=== PATIENT | male | born 1990 | race Caucasian/White ===

== ENCOUNTER 2018-08-25 11:16 | Emergency (ER) | payer OTHER ==
[2018-08-25 12:45] LABS: ADD UMIC YES; UR ASCORBIC ACID NEGATIVE (NEGATIVE); UR BACTERIA FEW /HPF (NONE SEEN); UR BILIRUBIN (Dip) NEGATIVE (NEGATIVE); UR BLOOD (Dip) 1+ mg/dL (NEGATIVE); UR CLARITY SLIGHTLY CLOUDY (CLEAR); UR COLOR STRAW (YELLOW); UR GLUCOSE (Dip) NEGATIVE (NEGATIVE); UR KETONES (Dip) NEGATIVE (NEGATIVE); UR LEUKOCYTE ESTERASE (Dip) 3+ Leu/ul (NEGATIVE); UR NITRITE (Dip) NEGATIVE (NEGATIVE); UR RBC 4 /HPF (0-5); UR SPECIFIC GRAVITY (Dip) 1.003 (1.003-1.030); UR TOTAL PROTEIN (Dip) NEGATIVE (NEGATIVE); UR UROBILINOGEN (Dip) NEGATIVE (NEGATIVE); UR WBC > 182 /HPF (0-5)
[2018-08-25 12:57] LABS: ADD MAN DIFF? NO
[2018-08-25 12:58] LABS: WHITE BLOOD COUNT 8.2 10^3/ul (4.8-10.8)
[2018-08-25 12:58] LABS: BASOPHILS % 0.4 % (0.0-2.0); EOSINOPHILS % 0.5 % (0.0-7.0); HEMATOCRIT 42.9 % (42.0-52.0); HEMOGLOBIN 14.1 g/dl (14.0-18.0); LYMPHOCYTES # 1.5 10^3/ul (0.8-2.9); LYMPHOCYTES % 18.5 % (15.0-51.0); MEAN CORPUSCULAR HEMOGLOBIN 30.9 pg (29.0-33.0); MEAN CORPUSCULAR HGB CONC 32.9 g/dl (32.0-37.0); MEAN CORPUSCULAR VOLUME 93.9 fl (82.0-101.0); MEAN PLATELET VOLUME 9.5 fl (7.4-10.4); MONOCYTE # 0.5 10^3/ul (0.3-0.9); MONOCYTES % 6.3 % (0.0-11.0); NEUTROPHIL # 6.1 10^3/ul (1.6-7.5); NEUTROPHILS % 73.9 % (39.0-77.0); PLATELET COUNT 246 10^3/UL (140-415); RED BLOOD COUNT 4.57 10^6/ul (4.70-6.10); RED CELL DISTRIBUTION WIDTH 11.5 % (11.5-14.5)
[2018-08-25 13:14] LABS: ALANINE AMINOTRANSFERASE 15 IU/L (13-69); ALBUMIN 4.7 g/dl (3.3-4.9); ALBUMIN/GLOBULIN RATIO 1.23; ALKALINE PHOSPHATASE 81 IU/L (42-121); ANION GAP 12 (5-13); ASPARTATE AMINO TRANSFERASE 24 IU/L (15-46); BILIRUBIN,INDIRECT 1.2 mg/dl (0-1.1); BILIRUBIN,TOTAL 1.2 mg/dl (0.2-1.3); BLOOD UREA NITROGEN 11 mg/dl (7-20); CALCIUM 9.6 mg/dl (8.4-10.2); CARBON DIOXIDE 30 mmol/L (21-31); CHLORIDE 101 mmol/L (97-110); CREATININE 0.77 mg/dl (0.61-1.24); Estimated GFR > 60 mL/min (>60); GLUCOSE 82 mg/dl (70-220); LIPASE 28 U/L (23-300); POTASSIUM 4.4 mmol/L (3.5-5.1); SODIUM 143 mmol/L (135-144); TOTAL PROTEIN 8.5 g/dl (6.1-8.1)
[2018-08-25] MEDS: SOD CHLORIDE 0.9% 500 ML IV (13:19)
[2018-08-25] MEDS: CIPROFLOXACIN 400MG/D5W 200 ML IVPB (13:57)
== END 2018-08-25 14:30 | disposition home or self-care (01) ==
LOC: FTE 11:16
DX: N39.0 Urinary tract infection, site not specified (principal)
CPT/HCPCS: 36415; 74176; 80053; 81001; 83690; 85025; 96374; 99285-25